=== PATIENT | male | born 1965 | race Caucasian/White ===

== ENCOUNTER 2023-01-23 23:08 | Emergency (ER) | payer MEDICAID ==
[~2023-01-23] VITALS: Ht 172.7 cm; Wt 83.9 kg
[2023-01-23 23:12] VITALS: BP_SYST 147; PULSE 86; RESP 20; TEMP 98; O2SAT 95
[2023-01-23] MEDS ORDERED: MORPHINE 4 MG INJ. 4 MG/ML VIAL IVP ONE (23:30)
[2023-01-23] MEDS ORDERED: ASPIRIN 81 MG TAB.CHEW PO ONE (23:30)
[2023-01-23] MEDS ORDERED: NS 500 ML IV ONE (23:30)
[2023-01-23] MEDS ORDERED: ASPIRIN 325 MG TABLET PO ONE (23:30)
[2023-01-23 23:49] LABS: BASOPHILS # (AUTO) 0.1 K/uL (0.0-0.2); BASOPHILS % (AUTO) 0.8 % (0.0-2.0); EOSINOPHILS # (AUTO) 0.8 K/uL (0.0-0.4); EOSINOPHILS % (AUTO) 5.9 % (0.0-4.0); HEMATOCRIT 48.4 % (36-54); HEMOGLOBIN 16.2 g/dL (14.0-18.0); LYMPHOCYTES # (AUTO) 3.6 K/uL (1.0-5.5); LYMPHOCYTES % (AUTO) 27.6 % (20.5-51.5); MEAN CORPUSCULAR HEMOGLOBIN 30 pg (27-31); MEAN CORPUSCULAR HGB CONC 34 % (32-36); MEAN CORPUSCULAR VOLUME 89 fL (79.0-98.0); MONOCYTES % (AUTO) 7.7 % (1.7-9.3); NEUTROPHILS # (AUTO) 7.6 K/uL (1.8-7.7); PLATELET COUNT (AUTO) 325 K/uL (130-430); RED BLOOD CELL COUNT(AUTO) 5.43 MIL/uL (4.2-6.2); RED CELL DISTRIBUTION WIDTH 13.9 % (9.0-15.0)
[2023-01-24] MEDS ORDERED: LORazepam 2 MG/ML VIAL IVP ONE
[2023-01-24] MEDS ORDERED: MAG-AL HYDROX/SIMETH 30 ML UDC PO ONE
[2023-01-24 00:03] LABS: ANION GAP 4 (5-15); CALCIUM 10.2 mg/dL (8.4-11.0); CARBON DIOXIDE 33 mmol/L (23-29); CHLORIDE 101 mmol/L (98-107); CREATININE 1.32 mg/dL (0.55-1.30); GFR AFRICAN AMERICAN 72 mL/min (>90); GLUCOSE 125 mg/dL (74-106); SODIUM SERUM 138 mmol/L (136-145); UREA NITROGEN, BLOOD 17 mg/dL (8-21)
[2023-01-24 00:09] LABS: ALANINE AMINOTRANSFERASE 24 U/L (12-78); ASPARTATE AMINOTRANSFERASE 14 U/L (10-37); BILIRUBIN,DIRECT 0.1 mg/dL (0.0-0.3); TOTAL BILIRUBIN 0.3 mg/dL (0.0-1.0); TOTAL PROTEIN, SERUM 7.4 g/dL (6.4-8.3)
[2023-01-24 00:10] LABS: GFR NON AFRICAN-AMERICAN 60 mL/min (>90)
[2023-01-24 02:01] VITALS: BP_SYST 126; PULSE 90; RESP 25; TEMP 97.2; O2SAT 94
== END 2023-01-24 02:01 | disposition short-term general hospital (02) ==
LOC: SED 23:08
DX: I24.9 Acute ischemic heart disease, unspecified (principal); I21.3 ST elevation (STEMI) myocardial infarction of unspecified site; R07.9 Chest pain, unspecified; Z79.899 Other long term (current) drug therapy
CPT/HCPCS: 99291; 96374; 96361; 80076; 80048; 83880; 85025; 84484; 36415; 71045; 96375; 93005; J2270; J7030; J2060